=== PATIENT | female | born 1970 | race Caucasian/White ===

== ENCOUNTER → 2016-11-17 | Outpatient (REF) | payer OTHER ==
[~2016-11-17] MED LIST: DICL50TAB PR; HYDR1CR TOP; VICO5TAB PO; diovan OR; imitrex OR
[2016-11-17 14:55] LABS: FOLLICLE STIMULATING HORMONE 5.3 mIU/mL; LUTEINIZING HORMONE 4.2 mIU/mL
== END ==
LOC: M LAB REF 13:37
PROVIDERS: ATTEND Nurse Practitioner Adult Health
DX: J02.9 Acute pharyngitis, unspecified (principal)

== ENCOUNTER → 2016-11-23 | Outpatient (REF) | payer OTHER | LOC: M LAB REF 13:12 | PROVIDERS: ATTEND Nurse Practitioner Adult Health | DX: E83.52 Hypercalcemia (principal) ==

== ENCOUNTER → 2016-12-01 | Outpatient (CLI) | payer OTHER ==
--- NOTE | 2016-12-01 15:02 | REP ---
Parathyroid nuclear scintigraphy with SPECT: History: Hyperparathyroidism. Technique: 27.5 millicuries of technetium 99m sestamibi is injected and planar images are acquired of 15 minutes and after three hour delay. SPECT imaging is acquired as well. Findings: Initial 15-minute images demonstrate expected salivary and thyroid uptake. Thyroid gland washout is confirmed on three hour delayed images. No residual focus of increased uptake is seen in the neck or mediastinum to suggest a parathyroid adenoma. Impression: Negative sestamibi parathyroid nuclear scintigraphy. Signed by Julien Hand MD 12/01/2016 05:18 P
== END ==
LOC: M RAD 09:45
PROVIDERS: ATTEND Nurse Practitioner Adult Health
DX: E21.3 Hyperparathyroidism, unspecified (principal)
CPT/HCPCS: 78070; 78803; A9500

== ENCOUNTER → 2017-04-27 | Outpatient (REF) | payer OTHER | LOC: M LAB REF 17:06 | DX: R50.9 Fever, unspecified (principal); J06.9 Acute upper respiratory infection, unspecified ==

== ENCOUNTER 2017-06-21 21:30 | Emergency (ER) | payer OTHER ==
[2017-06-21] MEDS: ASPIRIN 81 MG CHEW TABLET PO (22:30)
[2017-06-21 22:45] LABS: BASO % 0.2 % (0.0-1.0); EOS # 0.1 10^3/uL (0.0-0.50); EOS % 0.8 % (0.0-3.0); HEMATOCRIT 34.9 % (36.0-47.0); HEMOGLOBIN 11.5 g/dl (12.0-16.0); IMMATURE GRANULOCYTE % 0.2 % (0-3.0); LYMPH % 22.6 % (24.0-44.0); MEAN CORPUSCULAR HEMOGLOBIN 28.3 pg (27.0-33.0); MEAN CORPUSCULAR VOLUME 85.7 fl (80.0-96.0); MONO # 0.6 10^3/uL (0.0-0.8); MONO % 7.2 % (0.0-5.0); PLATELET COUNT, AUTOMATED 246 10^3/uL (150-450); RED BLOOD COUNT 4.07 10^6/uL (4.00-5.40); RED CELL DISTRIBUTION WIDTH 12.8 % (11.5-14.5); WHITE BLOOD COUNT 8.7 10^3/uL (4.0-10.0)
[2017-06-21 23:16] LABS: ALBUMIN 3.7 GM/DL (3.2-5.2); ALKALINE PHOSPHATASE 70 U/L (45-117); ALT/SGPT 13 U/L (12-78); ANION GAP 11 MEQ/L (8-16); AST/SGOT 16 U/L (7-37); BILIRUBIN,DIRECT < 0.1 MG/DL (0.0-0.2); BILIRUBIN,TOTAL 0.3 MG/DL (0.2-1.0); BLOOD UREA NITROGEN 12 MG/DL (7-18); CALCIUM LEVEL 8.2 MG/DL (8.5-10.1); CARBON DIOXIDE LEVEL 24 MEQ/L (21-32); CHLORIDE LEVEL 105 MEQ/L (98-107); CPK CREATINE PHOSPHOKINASE 69 U/L (26-192); CREATININE FOR GFR 0.77 MG/DL (0.55-1.30); GLOMERULAR FILTRATION RATE > 60.0 (>58); GLUCOSE, FASTING 124 MG/DL (70-100); LIPASE 165 U/L (73-393); MB/CK RELATIVE INDEX 1.44 (< OR =4); POTASSIUM SERUM 3.2 MEQ/L (3.5-5.1); SODIUM LEVEL 140 MEQ/L (136-145); TOTAL PROTEIN 7.4 GM/DL (6.4-8.2); TROPONIN I < 0.02 NG/ML (< 0.10)
[2017-06-21] MEDS: POTASSIUM CHLORIDE 10 MEQ SR TABLET PO (23:41)
[2017-06-22 02:33] LABS: CPK CREATINE PHOSPHOKINASE 58 U/L (26-192); TROPONIN I < 0.02 NG/ML (< 0.10)
[2017-06-22 02:34] LABS: MB/CK RELATIVE INDEX 1.72 (< OR =4)
== END 2017-06-22 03:11 | disposition home or self-care (01) ==
LOC: M ED 06-22 03:11
DX: R07.89 Other chest pain (principal); F41.9 Anxiety disorder, unspecified; I10 Essential (primary) hypertension; N80.9 Endometriosis, unspecified; E34.9 Endocrine disorder, unspecified; Z88.5 Allergy status to narcotic agent; Z88.1 Allergy status to other antibiotic agents; Z79.899 Other long term (current) drug therapy
CPT/HCPCS: 71045

== ENCOUNTER → 2018-09-16 | Outpatient (REF) | payer OTHER ==
[~2018-09-16] MED LIST changes: +BISO10TA13 PO; -HYDR1CR TOP; +HYDR1CRE93 TOP; +VALS1TAB66 PO
== END ==
LOC: M LAB REF 16:01
PROVIDERS: ATTEND Physician Assistant
DX: N39.0 Urinary tract infection, site not specified (principal)

== ENCOUNTER → 2019-01-23 | Outpatient (REF) | payer OTHER ==
[2019-01-23 18:23] LABS: AMYLASE 56 U/L (25-115); LIPASE 139 U/L (73-393)
== END ==
LOC: M LAB REF 17:24
PROVIDERS: ATTEND Nurse Practitioner Adult Health
DX: R10.9 Unspecified abdominal pain (principal)

== ENCOUNTER 2019-06-08 13:49 | Emergency (ER) | payer OTHER ==
[~2019-06-08] VITALS: Ht 157.5 cm; Wt 80.6 kg
[2019-06-08] MEDS ORDERED: OMEP-221 (13:57)
[2019-06-08] MEDS ORDERED: FAMO40TA3 (13:57)
[2019-06-08] MEDS ORDERED: IRBE150T7 (13:57)
[2019-06-08] MEDS ORDERED: BYST5TAB2 (13:57)
[2019-06-08 14:46] LABS: BASO % 0.4 % (0.0-1.0); EOS # 0.2 10^3/uL (0.0-0.5); EOS % 2.2 % (0.0-3.0); HEMATOCRIT 39.3 % (36.0-47.0); HEMOGLOBIN 12.7 g/dl (12.0-15.5); LYMPH # 1.6 10^3/uL (1.5-5.0); LYMPH % 24.2 % (24.0-44.0); MEAN CORPUSCULAR HEMOGLOBIN 28.9 pg (27.0-33.0); MEAN CORPUSCULAR HGB CONC 32.3 g/dl (32.0-36.5); MEAN CORPUSCULAR VOLUME 89.3 fl (80.0-96.0); MONO # 0.4 10^3/uL (0.0-0.8); MONO % 6.5 % (0.0-5.0); NEUTROPHILS # 4.5 10^3/uL (1.5-8.5); NEUTROPHILS % 66.6 % (36.0-66.0); PLATELET COUNT, AUTOMATED 280 10^3/uL (150-450); WHITE BLOOD COUNT 6.7 10^3/uL (4.0-10.0)
--- NOTE | 2019-06-08 14:48 | REP ---
Portable chest x-ray: Single view. History: Chest pain. Comparison study: June 21, 2017. Findings: EKG monitoring electrodes overlie the chest. There are numerous surgical clips under the right hemidiaphragm in the right upper quadrant unchanged. The lungs are well inflated and clear. Pleural angles are sharp. Heart size is normal. Pulmonary vasculature is not increased. Impression: No acute abnormality. Numerous surgical clips in the right upper abdomen. Electronically Signed by Julien Hand MD 06/08/2019 02:39 P
[2019-06-08 15:09] LABS: BLOOD UREA NITROGEN 13 MG/DL (7-18); CALCIUM LEVEL 9.2 MG/DL (8.5-10.1); CARBON DIOXIDE LEVEL 26 MEQ/L (21-32); CHLORIDE LEVEL 105 MEQ/L (98-107); CK-MB VALUE MASS < 1.0 NG/ML (<3.6); CPK CREATINE PHOSPHOKINASE 64 U/L (26-192); CREATININE FOR GFR 0.88 MG/DL (0.55-1.30); GLOMERULAR FILTRATION RATE > 60.0 (>51); GLUCOSE, FASTING 121 MG/DL (70-100); MB/CK RELATIVE INDEX 1.56 (< OR =4); POTASSIUM SERUM 3.9 MEQ/L (3.5-5.1); SODIUM LEVEL 136 MEQ/L (136-145); TROPONIN I < 0.02 NG/ML (< 0.10)
[2019-06-08 17:52] LABS: CK-MB VALUE MASS < 1.0 NG/ML (<3.6); CPK CREATINE PHOSPHOKINASE 63 U/L (26-192); MB/CK RELATIVE INDEX 1.59 (< OR =4); TROPONIN I < 0.02 NG/ML (< 0.10)
[2019-06-08 18:27] VITALS: BP 131/71
--- NOTE | 2019-06-08 21:14 | ECGEPIP ---
[facility] - ED Test Date: 2019-06-08 Pat Name: ROSY MURILLO Department: Room: - Gender: Female Clinical Nurse Manager: : 1970 Requested By: Crystal Maravilla Order Number: [id number] Reading MD: Pradeep Crawford Measurements Intervals [place] Rate: 95 P: 48 [place]: 141 QRS: 29 QRSD: 84 T: -16 QT: 350 QTc: 442 Interpretive Statements SINUS RHYTHM POOR R WAVE PROGRESSION ST DEVIATION AND MODERATE T-WAVE ABNORMALITY, CONSIDER ANTEROLATERAL ISCHEMIA Electronically Signed on 06-08-2019 21:14:15 EST by Pradeep Crawford
--- NOTE | 2019-06-08 21:20 | ECGEPIP ---
[facility] - ED Test Date: 2019-06-08 Pat Name: ROSY MURILLO Department: Room: - Gender: Female Punching Machine Operator: RONAL : 1970 Requested By: KALPESH Mendoza Order Number: [id number] Reading MD: Pradeep Crawford Measurements Intervals [place] Rate: 75 P: 56 [place]: 139 QRS: 50 QRSD: 87 T: 37 QT: 381 QTc: 428 Interpretive Statements SINUS RHYTHM POOR R WAVE PROGRESSION ST DEVIATION AND MODERATE T-WAVE ABNORMALITY, CONSIDER ANTERIOR ISCHEMIA SIMILAR TO PRIOR ON SAME DATE Electronically Signed on 06-08-2019 21:19:46 EST by Pradeep Crawford
== END 2019-06-08 18:35 | disposition home or self-care (01) ==
LOC: M ED 13:49
DX: R07.9 Chest pain, unspecified (principal); K21.9 Gastro-esophageal reflux disease without esophagitis; R94.31 Abnormal electrocardiogram [ECG] [EKG]; I10 Essential (primary) hypertension; F41.9 Anxiety disorder, unspecified; Z85.858 Personal history of malignant neoplasm of other endocrine glands; Z88.5 Allergy status to narcotic agent; Z88.8 Allergy status to other drugs, medicaments and biological substances; Z79.83 Long term (current) use of bisphosphonates; Z79.899 Other long term (current) drug therapy

== ENCOUNTER → 2020-03-12 | Outpatient (CLI) | payer SELFPAY ==
[~2020-03-12] MED LIST changes: +BYST5TAB2; +FAMO40TA3; +IRBE150T7; +OMEP-221
== END ==
LOC: M LABSMTC 15:43
PROVIDERS: ATTEND Pediatrics
DX: Z11.59 Encounter for screening for other viral diseases (principal)

== ENCOUNTER → 2020-03-25 | Outpatient (REF) | payer OTHER ==
[2020-03-25 17:56] LABS: H PYLORI QUALITATIVE IgG NEGATIVE (NEGATIVE)
== END ==
LOC: M LAB REF 16:19
PROVIDERS: ATTEND Nurse Practitioner Adult Health
DX: R10.11 Right upper quadrant pain (principal)

== ENCOUNTER → 2021-05-12 | Outpatient (CLI) | payer OTHER ==
[~2021-05-12] MED LIST changes: +OCUV1CAP4 PO; -OMEP-221; +OMEP40CA5; +PROHANCE 279.3MG/ML 15ML VIAL ONE
== END ==
LOC: M PLAIMG 12:51
PROVIDERS: ATTEND Nurse Practitioner Adult Health
DX: C74.01 Malignant neoplasm of cortex of right adrenal gland (principal); Z15.89 Genetic susceptibility to other disease

== ENCOUNTER → 2021-05-14 | Outpatient (CLI) | payer OTHER | LOC: M PLAIMG 10:04 | PROVIDERS: ATTEND Nurse Practitioner Adult Health | DX: C74.01 Malignant neoplasm of cortex of right adrenal gland (principal); Z15.89 Genetic susceptibility to other disease ==

== ENCOUNTER → 2021-11-04 | Outpatient (CLI) | payer OTHER ==
[~2021-11-04] MED LIST changes: -PROHANCE 279.3MG/ML 15ML VIAL ONE
== END ==
LOC: M WUC 14:41
PROVIDERS: ATTEND Nurse Practitioner Adult Health
DX: R07.89 Other chest pain (principal)

== ENCOUNTER → 2022-03-18 | Outpatient (CLI) | payer OTHER ==
[~2022-03-18] MED LIST changes: +PROHANCE 279.3MG/ML 15ML VIAL ONE; +PROHANCE 279.3MG/ML 5ML VIAL ONE
== END ==
LOC: M PLAIMG 08:41
PROVIDERS: ATTEND Nurse Practitioner Adult Health
DX: C74.01 Malignant neoplasm of cortex of right adrenal gland (principal)
CPT/HCPCS: 72197; 74183; A9576

== ENCOUNTER → 2022-03-24 | Outpatient (CLI) | payer OTHER | LOC: M PLAIMG 14:51 | PROVIDERS: ATTEND Nurse Practitioner Adult Health | DX: C74.01 Malignant neoplasm of cortex of right adrenal gland (principal) | CPT/HCPCS: 71552; A9576 ==

== ENCOUNTER → 2023-03-19 | Outpatient (CLI) | payer OTHER | LOC: M PLAIMG 12:49 | PROVIDERS: ATTEND Nurse Practitioner Adult Health | DX: C74.10 Malignant neoplasm of medulla of unspecified adrenal gland (principal) | CPT/HCPCS: 72197; 74183; A9576 ==

== ENCOUNTER → 2023-03-22 | Outpatient (CLI) | payer OTHER | LOC: M PLAIMG 12:25 | PROVIDERS: ATTEND Nurse Practitioner Adult Health | DX: D35.00 Benign neoplasm of unspecified adrenal gland (principal) | CPT/HCPCS: 71552; A9576 ==

== ENCOUNTER → 2024-04-06 | Outpatient (CLI) | payer OTHER ==
[~2024-04-06] MED LIST changes: +BYST1TAB2; -BYST5TAB2; +IRBE150T27; -IRBE150T7; -PROHANCE 279.3MG/ML 5ML VIAL ONE
== END ==
LOC: M PLAIMG 07:39
PROVIDERS: ATTEND Nurse Practitioner Adult Health
DX: C74.01 Malignant neoplasm of cortex of right adrenal gland (principal); Z15.89 Genetic susceptibility to other disease
CPT/HCPCS: 71552; A9576

== ENCOUNTER → 2024-04-20 | Outpatient (CLI) | payer OTHER | LOC: M PLAIMG 13:37 | PROVIDERS: ATTEND Nurse Practitioner Adult Health | DX: Z15.89 Genetic susceptibility to other disease (principal); N28.1 Cyst of kidney, acquired | CPT/HCPCS: 72197; 74183; A9576 ==

== ENCOUNTER → 2024-06-08 | Outpatient (CLI) | payer OTHER ==
[~2024-06-08] MED LIST changes: -PROHANCE 279.3MG/ML 15ML VIAL ONE
== END ==
LOC: M WHC 14:42
PROVIDERS: ATTEND Nurse Practitioner Adult Health
DX: R22.1 Localized swelling, mass and lump, neck (principal)

== ENCOUNTER → 2024-11-10 | Outpatient (REF) | payer OTHER ==
[2024-11-14 12:27] LABS: HPV APTIMA Not Detected (Not Detected)
== END ==
LOC: M SFHCWAGY 13:00
PROVIDERS: ATTEND Obstetrics & Gynecology
DX: Z12.4 Encounter for screening for malignant neoplasm of cervix (principal)
CPT/HCPCS: 87624; G0123

== ENCOUNTER → 2025-02-14 | Outpatient (REF) | payer OTHER | LOC: M LAB REF 12:24 | PROVIDERS: ATTEND Nurse Practitioner Adult Health | DX: R10.12 Left upper quadrant pain (principal) ==

== ENCOUNTER → 2025-03-14 | Outpatient (CLI) | payer OTHER | LOC: M WUC 14:53 | PROVIDERS: ATTEND Nurse Practitioner Adult Health | DX: R05.9 Cough, unspecified (principal) ==

== ENCOUNTER → 2025-03-27 | Outpatient (CLI) | payer OTHER ==
[~2025-03-27] MED LIST changes: +PROHANCE 279.3MG/ML 15ML VIAL ONE
== END ==
LOC: M PLAIMG 09:43
PROVIDERS: ATTEND Nurse Practitioner Adult Health
DX: R10.10 Upper abdominal pain, unspecified (principal); C74.01 Malignant neoplasm of cortex of right adrenal gland; Z15.89 Genetic susceptibility to other disease
CPT/HCPCS: 71552; A9579

== ENCOUNTER → 2025-04-02 | Outpatient (CLI) | payer OTHER | LOC: M PLAIMG 10:19 | PROVIDERS: ATTEND Nurse Practitioner Adult Health | DX: N28.1 Cyst of kidney, acquired (principal) | CPT/HCPCS: 72197; 74183; A9579 ==